=== PATIENT | female | born 1990 | race Caucasian/White ===

== ENCOUNTER 2018-09-20 18:41 | Emergency (ER) | payer MEDICAID ==
[~2018-09-20] VITALS: Ht 149.9 cm; Wt 46.0 kg
[2018-09-20 18:42] VITALS: BP 128/77
[2018-09-20] MEDS ORDERED: IBUP-1623 PO (18:54)
[2018-09-20] MEDS ORDERED: CARBAMIDE PEROXIDE EAR DROPS 6.5%, 15ML RIGHT EAR ONE (19:00)
[2018-09-20] MEDS ORDERED: DOCUSATE 50 MG/5 ML, 10ML UDC ONE (19:10)
[2018-09-20] MEDS ORDERED: DOCUSATE 50 MG/5 ML ORAL SOL PO ONE (19:30)
[2018-09-20] MEDS ORDERED: ONDANSETRON ODT 4 MG ONE (19:46)
[2018-09-20] MEDS ORDERED: MECLIZINE CHEWABLE 25 MG TAB ONE (19:47)
[2018-09-20] MEDS ORDERED: ONDANSETRON ODT 4 MG PO ONE (20:00)
[2018-09-20] MEDS ORDERED: MECLIZINE CHEWABLE 25 MG TAB PO ONE (20:00)
== END 2018-09-20 21:03 | disposition home or self-care (01) ==
LOC: ED 19:50
DX: H65.01 Acute serous otitis media, right ear (principal); H61.21 Impacted cerumen, right ear; K21.9 Gastro-esophageal reflux disease without esophagitis
CPT/HCPCS: 69209; 99284; Q0162